=== PATIENT | male | born 2000 | race Caucasian/White ===

== ENCOUNTER 2020-05-22 19:17 | Emergency (ER) | payer OTHER ==
[~2020-05-22 19:17] MED LIST: Boostrix 0.5 ML (Tdap) VIAL ONE; Lidocaine 1% 20 ML MDV ONE
[2020-05-22] MEDS ORDERED: Cephalexin 500 MG CAP ONE (19:26)
[2020-05-22] MEDS ORDERED: Cephalexin 250 MG CAP ONE (19:26)
[2020-05-22] MEDS ORDERED: Bacitracin 1 PK ONE (19:26)
--- NOTE | 2020-05-22 19:52 | RAD ---
LEFT INDEX FINGER: 05/22/20 HISTORY: Injury. There is soft tissue laceration of the tip of the finger. Subtle cortical irregularity along the vola r side of the tuft of the distal phalanx. This is directly adjacent to the area of laceration. I lito ot exclude this as a small incomplete fracture. It may just be related to some of the arthritic stokes e and osteophytic change related to the tuft. IMPRESSION: Soft tissue laceration in the tip of the finger. Some slight irregularity along the volar surface of the tuft of the distal phalanx not definitively a fracture as discussed above. POS: MAKEN[facility]IE
[2020-05-22] MEDS ORDERED: Sodium Chloride Irrig Solution 250 ML ONE (20:42)
[2020-05-22] MEDS ORDERED: Sterile Water Irrigation 250 ML BOT ONE (20:42)
== END 2020-05-22 19:49 | disposition home or self-care (01) ==
LOC: MADERS 19:17
DX: S61.211A Laceration without foreign body of left index finger without damage to nail, initial encounter (principal); I10 Essential (primary) hypertension; Z79.899 Other long term (current) drug therapy; Z79.891 Long term (current) use of opiate analgesic; W31.2XXA Contact with powered woodworking and forming machines, initial encounter
CPT/HCPCS: 12001; 90471; 90715